=== PATIENT | female | born 1960 | race Caucasian/White ===

== ENCOUNTER 2020-12-31 18:10 | Emergency (ER) | payer OTHER, SELFPAY ==
--- NOTE | ~2020-12-31 | XR_ITS ---
EXAMINATION: XR ELBOW, RIGHT XR SHOULDER, RIGHT CLINICAL INFORMATION: Fall. COMPARISON: None TECHNIQUE: 3 views right elbow and 4 views right shoulder. FINDINGS: RIGHT SHOULDER: There is no visible acute fracture, dislocation or subluxation. The glenohumeral joints and the AC joint space is maintained normal. The soft tissues are normal. RIGHT ELBOW: There is no visible acute fracture, dislocation or subluxation seen. There is mildly positive anterior fat pad sign, suspicious for intra-articular fracture, not seen. XR/XR shoulder RT min 2V IMPRESSION: Unremarkable right shoulder exam. No acute fracture or dislocation seen in the right elbow, however, there is mildly positive anterior fat-pad sign suspicious of intra-articular fracture.
--- NOTE | ~2020-12-31 | XR_ITS ---
EXAMINATION: XR ELBOW, RIGHT XR SHOULDER, RIGHT CLINICAL INFORMATION: Fall. COMPARISON: None TECHNIQUE: 3 views right elbow and 4 views right shoulder. FINDINGS: RIGHT SHOULDER: There is no visible acute fracture, dislocation or subluxation. The glenohumeral joints and the AC joint space is maintained normal. The soft tissues are normal. RIGHT ELBOW: There is no visible acute fracture, dislocation or subluxation seen. There is mildly positive anterior fat pad sign, suspicious for intra-articular fracture, not seen. XR/XR elbow RT min 3V IMPRESSION: Unremarkable right shoulder exam. No acute fracture or dislocation seen in the right elbow, however, there is mildly positive anterior fat-pad sign suspicious of intra-articular fracture.
[2020-12-31 18:22] VITALS: BP 158/70; PULSE 64; RESP 16; TEMP 36.7; O2SAT 98; BMI 36.0
--- NOTE | 2020-12-31 19:19 | ED_ITS ---
HPI - Fall General Chief Complaint: Fall Stated Complaint: Fall Source: patient Mode of arrival: ambulatory Limitations: no limitations History of Present Illness HPI Narrative: 60-year-old female presents after a fall at work. States that she slipped on a wet floor and landed on her right arm. She is complaining of right elbow and right shoulder pain. She did not hit her head or lose consciousness complaint: fall Onset (ago): hour(s) (Within the hour of arrival) Fall from: standing Fall witnessed: yes, by bystander Place fall occurred: work Loss of consciousness: none Prolonged down time: no Symptoms prior to fall: none Context: tripped/slipped (Wet floor) Location of injury - extremities: right: shoulder and arm Severity: moderate Severity scale (1-10): 7 Quality: aching Related Data Previous Rx's Medication Instructions Recorded oxycodone 5 mg tablet 5 mg PO Q6H PRN #14 tab 12/31/20 Allergies Allergy/AdvReac Type Severity Reaction Status Date / Time No Known Allergies Allergy Unverified 01/09/20 18:55 [No Known Allergies*] Review of Systems Review of Systems: Constitutional: No Fever, No Chills ENT/Mouth: No Ear Pain, No Hoarseness, No sore throat Eyes: No Eye Pain, No Swelling, No Redness, No Foreign Body Cardiovascular: No Chest Pain, No SOB Respiratory: No Cough, No Dyspnea Gastrointestinal: No Nausea, No Vomiting, No Diarrhea, No abdominal Pain Genitourinary: No Dysuria, No Hematuria Musculoskeletal: positive right elbow and shoulder pain, No Myalgias, No Joint S welling Skin: No Skin lacerations, No rash Neuro: No Weakness, No Numbness, No Paresthesias, No Loss of Consciousness, No Dizziness, No Headache Psych: No Anxiety/Panic, No Depression Heme/Lymph: no easy bruising, no Lymphadenopathy Endocrine: No Polyuria, No Polydipsia Yes all other systems are reviewed and are negative PMFSH Past Medical History Attestation statement: The following information was validated with the patient. Source: old records reviewed Social History Social History Advance Directives: No Advance Directives Information Provided: No Physical Exam Vital Signs: Vital Signs: Last Vital Signs Temp 98.1 F 12/31/20 18:22 Pulse 64 12/31/20 18:22 Resp 16 12/31/20 18:22 BP 158/70 H 12/31/20 18:22 Pulse Ox 98 12/31/20 18:22 Body Mass Index 36.0 Appearance: Alert. Oriented X3. Mild distress. Eyes: Pupils equal, round and reactive to light. Sclera nonicteric. ENT: Pharynx normal. Moist mucous membranes. Neck: Normal inspection. Neck supple. No vertebral tenderness or step-offs. CVS: Normal heart rate and rhythm. Pulses normal. Respiratory: No respiratory distress. Breath sounds normal. Abdomen: Soft and nontender. Skin: Skin warm and dry. Normal skin color. Normal skin turgor. Extremities: Right elbow pain to palpation, full range of motion to the hands and digits, decreased range of motion to the right elbow, decreased range of motion on abduction and adduction to the right shoulder. Tenderness to the acromion process and anterior shoulder. No tenderness to the back or scapula. Neuro: No motor deficit. No sensory deficit. Cranial nerves 2-12 intact. Course Course Course Narrative: 60-year-old female presents with injury sustained from a fall at work. X-rays indicate suspicion for elbow fracture and physical exam suspicious for right rotator cuff injury or ligament injury. I did discuss this case with Dr. Yarbrough, plan of care is for patient follow-up as an outpatient, swelling, and pain management. Patient verbalized understanding of and agrees to plan of care discharge home. Consultations Consultation #1: [place] Time: 20:27 MDM - Fall Differential Diagnosis Differential diagnosis: Likely dislocation and fracture Medical Records Attestation: I reviewed the patient's medical records. Lab Data Attestation: I reviewed the patient's lab results. Imaging Data Right shoulder and elbow x-ray: Attestation: I personally reviewed and interpreted this imaging study as follows: Radiologist's impression: EXAMINATION: XR ELBOW, RIGHT XR SHOULDER, RIGHT CLINICAL INFORMATION: Fall.? COMPARISON: None? TECHNIQUE: 3 views right elbow and 4 views right shoulder.? FINDINGS: RIGHT SHOULDER: There is no visible acute fracture, dislocation or subluxation. The glenohumeral joints and the AC joint space is maintained normal. The soft tissues are normal. RIGHT ELBOW: There is no visible acute fracture, dislocation or subluxation seen. There is mildly positive anterior fat pad sign, suspicious for intra-articular fracture, not seen.? XR/XR elbow RT min 3V IMPRESSION: Unremarkable right shoulder exam. ? No acute fracture or dislocation seen in the right elbow, however, there is mildly positive anterior fat-pad sign suspicious of intra-articular fracture. Discharge Plan Discharge Clinical Impression: Fractured elbow, Rotator cuff injury Patient Disposition: Home, Self-Care Instructions: Rotator Cuff Injury (ED), Elbow Fracture (ED), How to Use a Sling (ED) Additional Instructions: You were evaluated for injury sustained from a at work. X-rays show suspicion for an elbow fracture and your physical exam is suspicious for a rotator cuff injury. Please follow up with [facility] as well as Orthopedics for further evaluation. I did discuss your case with Dr. Yarbrough. keep sling in place, you may remove to shower. We prescribed oxycodone, this medication is a narcotic and has high risk for addiction and abuse. Do not drive or operate machinery while taking this medication. This medication can cause drowsiness, increased risk for falls, delay reaction time, and cause constipation. Drink plenty of fluids, and use Colace or MiraLax to help soften stools. Thank you for choosing this emergency department for evaluation. Please follow-up with primary care physician as needed. Return to the emergency department for any new, concerning, or worsening symptoms. Prescriptions: New oxycodone 5 mg tablet 5 mg PO Q6H PRN (Reason: pain) Qty: 14 RF: 0 Referrals: [facility] [Provider Group] - 2 days (Fall, elbow fracture, rotator cuff injury) Krzysztof Yarbrough MD [Physician] - 2 days (Right elbow fracture, rotator cuff injury) Stand Alone Forms: Work/School Release Interventions: ED Discharge Assessment Last Done: 12/31/20 21:44 Discharge Date/Time: 12/31/20 21:44
== END 2020-12-31 21:44 | disposition home or self-care (01) ==
PROVIDERS: Emergency Provider Emergency Medicine; PCP Family Medicine
DX: S46.001A Unspecified injury of muscle(s) and tendon(s) of the rotator cuff of right shoulder, initial encounter (principal); S42.401A Unspecified fracture of lower end of right humerus, initial encounter for closed fracture; W01.0XXA Fall on same level from slipping, tripping and stumbling without subsequent striking against object, initial encounter; Y93.89 Activity, other specified; Y92.219 Unspecified school as the place of occurrence of the external cause; Y99.0 Civilian activity done for income or pay
CPT/HCPCS: 73030; 73080; 99283

== ENCOUNTER → 2021-01-05 12:50 | Outpatient (BNVA) | payer OTHER, SELFPAY | PROVIDERS: PCP Family Medicine; Visit Provider Physician Assistant Medical | DX: S50.01XA Contusion of right elbow, initial encounter (principal); S52.001A Unspecified fracture of upper end of right ulna, initial encounter for closed fracture; S46.211A Strain of muscle, fascia and tendon of other parts of biceps, right arm, initial encounter; S46.911A Strain of unspecified muscle, fascia and tendon at shoulder and upper arm level, right arm, initial encounter; W01.0XXA Fall on same level from slipping, tripping and stumbling without subsequent striking against object, initial encounter | CPT/HCPCS: 99203 ==

== ENCOUNTER 2021-01-08 07:20 | Outpatient (REF) | payer OTHER, SELFPAY ==
--- NOTE | ~2021-01-08 | XR_ITS ---
EXAMINATION: XR ELBOW, RIGHT XR FOREARM, RIGHT CLINICAL INFORMATION: Pain. COMPARISON: Right elbow radiographs dated 12/31/2020 TECHNIQUE: AP, oblique, and lateral views of the right elbow. AP and lateral views of the right forearm. FINDINGS: RIGHT ELBOW: No displaced fracture. No dislocation. No joint space narrowing or marginal osteophytes. No osseous erosion. No large joint effusion. No abnormal soft tissue calcification. RIGHT FOREARM: No acute fracture or dislocation. No joint space narrowing or marginal osteophytes. No osseous erosion. No abnormal soft tissue calcification. XR/XR elbow RT min 3V IMPRESSION: RIGHT ELBOW: Unremarkable examination. RIGHT FOREARM: Unremarkable examination.
--- NOTE | ~2021-01-08 | XR_ITS ---
EXAMINATION: XR ELBOW, RIGHT XR FOREARM, RIGHT CLINICAL INFORMATION: Pain. COMPARISON: Right elbow radiographs dated 12/31/2020 TECHNIQUE: AP, oblique, and lateral views of the right elbow. AP and lateral views of the right forearm. FINDINGS: RIGHT ELBOW: No displaced fracture. No dislocation. No joint space narrowing or marginal osteophytes. No osseous erosion. No large joint effusion. No abnormal soft tissue calcification. RIGHT FOREARM: No acute fracture or dislocation. No joint space narrowing or marginal osteophytes. No osseous erosion. No abnormal soft tissue calcification. XR/XR forearm RT 2V IMPRESSION: RIGHT ELBOW: Unremarkable examination. RIGHT FOREARM: Unremarkable examination.
== END 2021-01-08 07:21 | disposition home or self-care (01) ==
LOC: HO.HOSX 07:20
PROVIDERS: Visit Provider Physician Assistant
DX: M25.521 Pain in right elbow (principal); M79.631 Pain in right forearm
CPT/HCPCS: 73080; 73090; 99202

== ENCOUNTER 2021-01-22 07:32 | Outpatient (REF) | payer OTHER, SELFPAY ==
--- NOTE | ~2021-01-22 | XR_ITS ---
EXAMINATION: XR ELBOW, RIGHT CLINICAL INFORMATION: Pain. COMPARISON: Most recent right elbow radiographs dated 01/08/2021. TECHNIQUE: AP, lateral, and oblique views of the right elbow. FINDINGS: No acute fracture or dislocation. No joint space narrowing or marginal osteophytes. No osseous erosion. No abnormal soft tissue calcification. No significant joint effusion. XR/XR elbow RT min 3V IMPRESSION: Unremarkable examination.
== END 2021-01-22 07:33 | disposition home or self-care (01) ==
LOC: HO.HOSX 07:32
PROVIDERS: Visit Provider Physician Assistant
DX: M75.81 Other shoulder lesions, right shoulder (principal); M25.521 Pain in right elbow
CPT/HCPCS: 20610; 73080; 99212; J1040

== ENCOUNTER 2021-03-04 14:00 | Outpatient (RCR) | payer OTHER, SELFPAY ==
--- NOTE | 2021-02-03 11:27 | MHC.PT.EP ---
[facility] [place] Office [place] Office [place] Office [address] Leila Hollingsworth [address] [phone] F: [phone] F: [phone] F: [phone] F: [phone] Physical Therapy Plan of Care Date of Evaluation: Date of Surgery: Diagnosis: This is a 60 yo female presenting to skilled PT with a script for R rotator cuff tendonitis. Assessment: This is a 60 yo female presenting to skilled PT with a script for R rotator cuff tendonitis. Pt comes to PT reporting a trip and fall at work on 12/31. Injury occurred when she walked onto a wet floor that was not marked and fell onto her R elbow/side. Does not think she hit her head but denies neck pain. She is being followed by [facility] ortho. The patient had an injection on 01/22. Per ortho note suspected R elbow fx but unsure. She comes in today reporting elbow is feeling better but her shoulder has been increasing in pain. She was placed in a sling originally after the injury but is not wearing one today at PT [facility] as directed by ortho. She reports: I can do pretty much everything but I have pain. It is improving but is still painful constantly. Denies numbness or tingling. She is RHD. Assessment reveals pain that ranges up to a 9/10. She demos decreased RUE ROM, decreased RUE strength, impaired posture with forward head/rounded shoulders and adducted/IR shoulder, impaired shoulder and elbow joint mobility as well as gross functional decline with reaching overhead/to the side, getting dressed, writting and typing as well as lifting. She returns to ortho in about a month and is leaving for [place] for family reasons for 2 weeks this Monday (she was provided an HEP to continue in the mean time). She is a good candidate for skilled PT 2x/wk for 6wks. Frequency and Duration: The patient will be seen 2x/wk for 6wks Short Term Goals: I in HEP Improve shoulder AROM without pain in all directions by 10 degs Chcf Goals: Tolerate sleeping through the night without waking from pain Demo at least 4+/5 scapular and shoulder strength Return to work in full without increase in pain when performing typing or writing Demo normal RUE ROM Treatment Plan: Modalities to reduce pain, spasms and effusion. Manual therapy to restore motion and function. Therapeutic exercise to improve strength and flexibility. Neuromuscular re-education for posture and balance. Therapeutic activities to return to functional activities of daily living. Electronically signed by: Allie Duarte PT Please sign and return to therapist. Thank you for your referral.
--- NOTE | 2021-02-25 12:17 | MHC.PT.PR ---
[facility] [place] Office [place] Office [place] Office [address] Hollingsworth [address] [phone] F: [phone] F: [phone] F: [phone] F: [phone] Physical Therapy Progress Note Diagnosis: This is a 60 yo female presenting to skilled PT with a script for R rotator cuff tendonitis. Date of Surgery: Date of Evaluation: 02/03/21 Treatments to Date: 4 Cancellations to Date: 0 No Shows to Date: 0 Subjective: Patient reporting that she was sore after last tx session, this has resolved today. She has been using her hot tub at home. Pain Score and Location: 6 RUE Objective Measures: ROM: Tolerated to 150 flexion AROM, 90 abduction, 50 ER in 45 degs, 45 IR in 45 degs TTP: anterior GHJ, infraspinatus and subscapularis Assessment: Patient returned to PT this week after being away due to family needs for 2 weeks. She has had initial eval on 02/03 and had a follow up prior to leaving (adequate HEP to continue while away). In general she reports that she has improved some but ROM when reassessed is equally painful and continues to be limited. Not only if her shoulder painful with all ROM active and passive but she also has worsening elbow symptoms. She would benefit from follow up with ortho and ? new imaging due to tenderness to palpation and limitations with ROM as well as nature of traumatic injury. She continues to be limited in housework, ADLs and has not returned to work as of yet. PT Plan: Continue with PT Frequency and Duration: The patient will be seen 2x/wk for 6wks Treatment Plan: Therapeutic Exercise Dynamic Therapeutic Activities Neuromuscular Re-ed Manual Therapies Joint Mobilization Taping Home Exercise Program Patient Education Electrical Stimulation Hot or Cold Pack Reviewed/ Agreed with Student Documentation: Therapist: Thank you once again for your referral.
--- NOTE | 2021-04-12 13:10 | MHC.PT.DC ---
[facility] [place] Office [place] Office [place] Office [address] Leila Hollingsworth [address] [phone] F: [phone] F: [phone] F: [phone] F: [phone] Physical Therapy Discharge Report Diagnosis: This is a 60 yo female presenting to skilled PT with a script for R rotator cuff tendonitis. Date of Surgery: Date of Evaluation: 02/03/21 Date of Discharge: 04/12/21 Treatments to Date: 5 Cancellations to Date: 0 No Shows to Date: 0 Discharge Status: Physician Discontinued Tx Discharge Summary: 03/04: Patient with increased soreness with minimal ther-ex. Regressed with some isometrics and light cane ther-ex. Trialed ionto for pain today. Skin intact to light touch, some redness noted s/p session but no skin irritation other than some itchiness. Seeing orthopedic tomorrow, would benefit from ? MRI. 04/12: Per ortho note, patient is undergoing surgery. DC to HEP. Electronically signed by: Allie Duarte PT Please sign and return to therapist. Thank you for your referral.
== END 2021-04-12 12:33 | disposition home or self-care (01) ==
LOC: HO.PTCHIC 14:00
PROVIDERS: PCP Family Medicine; Visit Provider Physician Assistant
DX: M75.80 Other shoulder lesions, unspecified shoulder (principal)
CPT/HCPCS: 97014; 97033; 97110; 97140; 97162

== ENCOUNTER → 2021-03-05 12:31 | Outpatient (BNVA) | payer OTHER, SELFPAY | PROVIDERS: PCP Family Medicine; Visit Provider Physician Assistant | DX: M75.80 Other shoulder lesions, unspecified shoulder (principal) | CPT/HCPCS: 99212 ==

== ENCOUNTER 2021-03-25 19:31 | Outpatient (REF) | payer OTHER, SELFPAY ==
--- NOTE | ~2021-03-25 | MR_ITS ---
EXAMINATION: MR SHOULDER WITHOUT CONTRAST, RIGHT CLINICAL INFORMATION: Other shoulder lesions, unspecified shoulder. Patient reports dull ache in right shoulder, weakness right arm, fell December 31. COMPARISON: XR right shoulder 12/31/2020. TECHNIQUE: MRI of the shoulder without contrast was performed on a high-field scanner. FINDINGS: ROTATOR CUFF: There is mild distal supraspinatus tendinosis with mild focal fraying of the bursal surface of the distal anterior fibers. There is no discrete tear. There is mild distal infraspinatus and subscapularis tendinosis. The teres minor tendon is intact. No muscle atrophy or fatty infiltration. BICEPS: Normal. CORACOACROMIAL ARCH: The undersurface of the acromion is curved, mildly laterally downsloping, with no subacromial spur. There is [id number] osteoarthritis of the acromioclavicular joint. LABRUM/CAPSULE: There is focal tearing of the junction of the superior and posterior labrum. The anterior labrum appears intact. The capsular structures are unremarkable. GLENOHUMERAL JOINT/MARROW: There are focal areas of mild cartilage thinning in the glenohumeral joint. MR/MR shoulder RT wo con IMPRESSION: 1. Mild distal supraspinatus tendinosis with focal bursal surface fraying. No discrete tear. Mild distal infraspinatus and subscapularis tendinosis. 2. Mildly laterally downsloping acromion process and [id number] osteoarthritis of the acromioclavicular joint. 3. Focal posterosuperior labral tear.
== END 2021-03-25 19:32 | disposition home or self-care (01) ==
LOC: HO.MRI 19:31
PROVIDERS: Visit Provider Physician Assistant
DX: M75.80 Other shoulder lesions, unspecified shoulder (principal)
CPT/HCPCS: 73221

== ENCOUNTER → 2021-03-31 10:45 | Outpatient (BNVA) | payer OTHER, SELFPAY | PROVIDERS: PCP Family Medicine; Visit Provider Physician Assistant | DX: S43.431D Superior glenoid labrum lesion of right shoulder, subsequent encounter (principal); M75.80 Other shoulder lesions, unspecified shoulder | CPT/HCPCS: 99212 ==

== ENCOUNTER 2021-04-27 08:54 | Day surgery (SDC) | payer OTHER, SELFPAY ==
--- NOTE | 2021-04-26 15:23 | HO.ANESPROP2 ---
HPI - Anesthesia Eval Consult details Narrative: 60yo F for Right Shoulder Arthroscopy with Subacromial Decompression and Labral Debridement PMFSH Active Problems Active Problems: All Active Problems (Updated 03/31/21 @ 15:27 by Greg Martinez PA-C) Labral tear of shoulder (Acute) Rotator cuff tendonitis (Acute) Right elbow pain (Acute) Past Medical History Medical History H/O deep venous thrombosis History of pulmonary embolism HTN (hypertension) Surgical History Surgical History (Updated 04/27/21 @ 09:37 by Cecelia Londono RN) History of sleeve gastrectomy Hx of laparoscopic gastric banding Social History Social History Patient Tobacco Use Status: Current everyday Tobacco user Tobacco use type: Cigarette Cigarettes Per Day: 3 Years Smoked: 23 Current occupational status: employed Current occupation: rt handed/secondary school registrar Meds Allergies Allergy/AdvReac Type Severity Reaction Status Date / Time No Known Allergies Allergy Verified 03/31/21 10:54 [No Known Allergies*] Home Medications Medication Instructions Recorded Confirmed Last Taken Type Lexapro 04/27/21 04/26/21 09:00 History Wellbutrin XL 150 mg PO DAILY 04/27/21 04/27/21 04/26/21 09:00 History lisinopril 20 mg PO DAILY 04/27/21 04/27/21 04/26/21 11:30 History omeprazole 20 mg PO DAILY 04/27/21 04/27/21 04/26/21 23:00 History Exam Exam Date and Time: April 26, 2021 1523 Assessment and Plan Assessment Anesthesia Assessment: Chart Reviewed
[2021-04-27] VITALS (21 sets, daily range): BP systolic 113–159; BP diastolic 42–91; PULSE 62–80; RESP 14–20; TEMP 36.6–37; O2SAT 90–100; BMI 35.2
[2021-04-27] MEDS: Lactated Ringers 1,000 ML 100 ML IVCONT (10:40)
--- NOTE | 2021-04-27 11:51 | MHC.SHP ---
Pre-Procedural Eval Section A Date of Service: 04/27/21 The patient is an INPATIENT: No Changes since office visit: Yes Patient answered all questions; No Cold of Flu in the past 2 weeks, No New Medical Problems and No Changes in Medication The History & Physical has been completed within 30 days and I have reviewed it.: Yes Section B Chief Complaint: other shoulder lesions Allergies: Allergies Allergy/AdvReac Type Severity Reaction Status Date / Time No Known Allergies Allergy Verified 03/31/21 10:54 [No Known Allergies*] Plan I have reviewed the history and physical and performed a pertinent physical examination on my patient. No changes have occurred unless specified.
--- NOTE | 2021-04-27 14:18 | P.BOP_ITS ---
Brief Operative Note Date of Service: 04/27/21 Pre-op diagnosis: right sub acromial impingement, labral tear and ACJ OA Post-op diagnosis: other (1) RAYNA 2) ACJ OA 3) Labral tear 4) rtc tear) Procedure: 1) SAD 2) DCE 3) circumferential labral debridement 4) rtc repair Implants: parekh and nephew bioinductive collagen graft Surgeon: Krzysztof Yarbrough MD Anesthesia: GETA and regional Was an Lock And Dam Operator used for this Procedure?: Yes Lock And Dam Operator: Greg Martinez Estimated blood loss (mL): 25 IV fluids (mL): 800 Pathology: none sent Condition: stable Disposition: PACU
[2021-04-27] MEDS: fentaNYL citrate/PF 100 MCG/2 ML VIAL 25 MCG IVPUSH ×4 (15:22→16:00)
[2021-04-27] MEDS: Acetaminophen 325 MG TABLET 650 MG PO (15:22)
[2021-04-27] MEDS: oxyCODONE HCl Immed Release 5 MG TABLET PO (15:23)
[2021-04-27] MEDS: HYDROmorphone HCl 0.5 MG/0.5 ML SYRINGE 0.25 MG IVPUSH ×2 (16:13→16:25)
[2021-04-27] MEDS: Ketorolac Tromethamine 30 MG/ML VIAL 15 MG IVPUSH (17:00)
--- NOTE | 2021-04-28 10:52 | P.OP_ITS ---
Operative Note Operative Note Date of Service: 04/27/21 Narrative: Date of Service: 04/27/21 Pre-op diagnosis: right sub acromial impingement, labral tear and ACJ OA Post-op diagnosis: other (1) RAYNA 2) ACJ OA 3) Labral tear 4) rtc tear) Procedure: 1) SAD 2) DCE 3) circumferential labral debridement 4) rtc repair Implants: parekh and nephew bioinductive collagen graft Surgeon: Krzysztof Yarbrough MD Anesthesia: GETA and regional Was an Customer Sales Service Manager used for this Procedure?: Yes Customer Sales Service Manager: Greg Martinez Estimated blood loss (mL): 25 IV fluids (mL): 800 Pathology: none sent Condition: stable Procedure in detail: Patient was brought to the operating room and placed the the beach chair posit ion. All bony prominences were well padded and the limb was prepped and draped in standard sterile fashion. A time out was called to identify proper site, proper procedure and proper surgeon. IV antibiotics per weight were administered. I began by making a posterolateral stab incision with a 15 blade. A blunt trochar was placed into the glenohumeral joint and I insufflated the joint with saline and a 30 degree arthroscope was placed. I established an outside- in anterior portal just distal to the biceps tendon. I then began my inspection of the glenohumeral joint. There was grade 2 changes of the glenoid. The humeral head was normal. There was some fraying of the biceps anchor but no elizabeth tearing. The superior labrum was diminutive and there was a large superior glenoid ossicle that extended the entirety of the superior ridge of the glenoid. This was slightly mobile when pressure was applied with a probe. There was circumferential small labral tearing. There was no undersurface rotator cuff tear. The subscapularis was intact. I began by debriding the superior labrum down to stable edges. I then burred down the mobile large ossicle and circumferentially debrided the labrum. I then removed the trochar and entered the subacromial space. A direct lateral portal was then established and I performed a bursectomy. D subacromial spur was debrided with a shaver approximately 5 mm and a distal clavicle excision of an additional 6 mm was performed after inspecting the osteoarthritic joint. Once the decompression was adequate I examined the rotator cuff. There was 50% partial-thickness bursal tearing of the supraspinatus approximately . given this I elected to place a collagen graft. An additional lateral portal was made and this was placed through the lateral portal and then adhered to the underlying cuff with peak omar and with 1 peek staple to the bone laterally. I had excellent coverage of the partial-thickness tear. Final pictures were taken and all instrumentation was removed. Portals were closed with nylon. Patient was placed in sterile dressing and a sling and extubated brought to recovery room in stable condition. There were no known complications.
== END 2021-04-27 19:02 | disposition home or self-care (01) ==
PROVIDERS: PCP Family Medicine; Visit Provider Orthopaedic Surgery
PROC: (CPT 29805; principal; 2021-04-27 10:30)
DX: S43.431A Superior glenoid labrum lesion of right shoulder, initial encounter (principal); S46.011A Strain of muscle(s) and tendon(s) of the rotator cuff of right shoulder, initial encounter; M67.813 Other specified disorders of tendon, right shoulder; M75.41 Impingement syndrome of right shoulder; M19.011 Primary osteoarthritis, right shoulder; X58.XXXA Exposure to other specified factors, initial encounter; Y93.9 Activity, unspecified; Y92.219 Unspecified school as the place of occurrence of the external cause; Y99.0 Civilian activity done for income or pay; I10 Essential (primary) hypertension; Z98.84 Bariatric surgery status; Z86.718 Personal history of other venous thrombosis and embolism; Z86.711 Personal history of pulmonary embolism; Z79.899 Other long term (current) drug therapy
CPT/HCPCS: 29827; 29826; 29824; 29823; C1713; J0171; J0690; J1100; J1170; J1885; J2250; J2370; J2405; J2550; J3010

== ENCOUNTER → 2021-05-03 09:41 | Outpatient (BNVA) | payer OTHER, SELFPAY | PROVIDERS: Visit Provider Physician Assistant | DX: S43.439D Superior glenoid labrum lesion of unspecified shoulder, subsequent encounter (principal); M25.521 Pain in right elbow; M75.80 Other shoulder lesions, unspecified shoulder; F17.210 Nicotine dependence, cigarettes, uncomplicated; Z98.890 Other specified postprocedural states | CPT/HCPCS: 99212 ==

== ENCOUNTER → 2021-05-31 14:31 | Outpatient (BNVA) | payer OTHER, SELFPAY | PROVIDERS: Visit Provider Physician Assistant | DX: Z47.89 Encounter for other orthopedic aftercare (principal) | CPT/HCPCS: 99212 ==

== ENCOUNTER → 2021-06-21 14:44 | Outpatient (BNVA) | payer OTHER, SELFPAY | PROVIDERS: Visit Provider Physician Assistant | DX: Z47.89 Encounter for other orthopedic aftercare (principal) | CPT/HCPCS: 99212 ==

== ENCOUNTER → 2021-08-02 13:07 | Outpatient (BNVA) | payer OTHER, SELFPAY | PROVIDERS: PCP Family Medicine; Visit Provider Physician Assistant | DX: Z98.890 Other specified postprocedural states (principal); F17.200 Nicotine dependence, unspecified, uncomplicated; Z71.6 Tobacco abuse counseling | CPT/HCPCS: 99212 ==

== ENCOUNTER → 2021-09-13 15:27 | Outpatient (BNVA) | payer OTHER, SELFPAY | PROVIDERS: PCP Family Medicine; Visit Provider Physician Assistant | DX: Z47.89 Encounter for other orthopedic aftercare (principal); Z98.890 Other specified postprocedural states | CPT/HCPCS: 99212 ==

== ENCOUNTER 2021-09-28 15:00 | Outpatient (RCR) | payer OTHER, SELFPAY ==
--- NOTE | 2021-05-28 15:10 | MHC.PT.PR ---
[facility] [place] Office [place] Office [place] Office [address] Leila Hollingsworth [address] [phone] F: [phone] F: [phone] F: [phone] F: [phone] Physical Therapy Progress Note Diagnosis: S/P ROTATION MED PATCH RC REPAIR/SAD Date of Surgery: 04/27/21 Date of Evaluation: 05/03/21 Treatments to Date: 8 Cancellations to Date: 0 No Shows to Date: 0 Subjective: Patient returns reporting pain was better after therapy last session but still has trouble sleeping and has pain again today. Pain Score and Location: 5 ACJ Objective Measures: 05/28/21 PROM: flexion 132, abduction 103, ER in 45 to 60 and 90 to 40 Assessment: 05/28/21: Jacki comes to PT reporting trouble sleeping and lingering pain still. Pain is located at the anterior GHJ incision and is tender to touch. She has stiffness and achiness into the upper humerus as well. She demos PROM flexion 132, abduction 103, ER in 45 to 60 and 90 to 40 today. She reports crepitis with cane work today associated with pain so held flexion and press after a few reps. She was educated on ice. Pain at the worst these days is rated as a 5/10. After manual work at the upper trap she had some improvements in the ability to perform ROM and had some improved pain. I will send this over as a progress note for ortho (appointment on Monday05/31/21). She is motivated to get better but pain seems to be the limiting component in terms of progression at this time. All therapy tx is still done to pain tolerance. She will be 5 weeks s/p surgical intervention on 06/01/21. She is curious about returning to driving time frames PT Plan: Continue with PT Frequency and Duration: The patient will be seen 2 X WEEK FOR 8 WEEKS Treatment Plan: Therapeutic Exercise Neuromuscular Re-ed Manual Therapies Taping Home Exercise Program Patient Education Electrical Stimulation Hot or Cold Pack Reviewed/ Agreed with Student Documentation: Therapist: Thank you once again for your referral.
--- NOTE | 2021-07-05 16:53 | MHC.PT.PR ---
[facility] [place] Office [place] Office [place] Office [address] Cristal Hollingsworth [address] [phone] F: [phone] F: [phone] F: [phone] F: [phone] Physical Therapy Progress Note Diagnosis: S/P ROTATION MED PATCH RC REPAIR/SAD Date of Surgery: 04/27/21 Date of Evaluation: 05/03/21 Treatments to Date: 17 Cancellations to Date: 0 No Shows to Date: 0 Subjective: I am feeling worse again, the clicking is worse and I had to take pain medication again Pain Score and Location: 0-8 (clicking) R shoulder Objective Measures: See below Assessment: 07/05/21: Jacki is now almost 10 weeks out from surgery. She is reporting the pain has increased again (starting last week) and this is due to an increase in painful clicking. She is TTP throughout the distal anterior and posterior glenoid. I trialed her in standing with AROM to see when clicking occurred. With standing AROM she demos improved ROM however experienced clicking with active flexion, abduction, ER and IR in abduction (all in standing). She also experienced clicking with active motions in supine (more frequent but not worse). She is concerned about this and reports that she will call surgeons office tomorrow. Updated ROM measurements from previous session include 120 abduction, 155 flexion, 55 degs ER In 45 degs. PT Plan: Continue with PT Frequency and Duration: The patient will be seen 2 X WEEK FOR 8 WEEKS Treatment Plan: Therapeutic Exercise Dynamic Therapeutic Activities Neuromuscular Re-ed Manual Therapies Taping Home Exercise Program Patient Education Electrical Stimulation Hot or Cold Pack Reviewed/ Agreed with Student Documentation: Therapist: Thank you once again for your referral.
--- NOTE | 2021-07-15 16:04 | MHC.PT.RE ---
[facility] [place] Office [place] Office [place] Office [address] Leila Hollingsworth [address] [phone] F: [phone] F: [phone] F: [phone] F: [phone] Physical Therapy Re-evaluation Diagnosis: S/P ROTATION MED PATCH RC REPAIR/SAD Date of Surgery: 04/27/21 Date of Evaluation: 05/03/21 Treatments to Date: 20 Cancellations to Date: 0 No Shows to Date: 0 Subjective: Patient reporting that she would like to continue PT at this time, feels like it is helping still Pain Score: 1-6/10 Pain Location: R shoulder Objective Measures: Pain: at rest 1-2/10, at the worst 6/10. Clicking is still present but improving, pain is located at the superior aspect of the shoulder, described as muscle pain TTP: Superior, posterior and anterior GHJ AROM standing: (R) shoulder flexion 156, abduction 138 AROM supine: (R) shoulder flexion 156, abduction 110, ER in 45 to 73, ER in 90 to 55, IR in 90 to 60 PROM supine: (R) shoulder flexion 164, abduction 170, ER in 45 to 60 and ER in 90 to 55 MMT (R) shoulder flexion 4-/5, abduction 4-/5, ER 4+/5, IR 4+/5, lower trap 4/5, mid and upper trap 3-/5 SPADI score now 24 on pain and 34 on disability Assessment: 07/15/21: Jacki is progressing with therapy still, she continues to have pain and limitations in ROM and strength and would benefit from continued PT 2x/wk for 4 more weeks. She demos AROM, AAROM and PROM above. Patient is compliant with HEP but is benefiting from PT pushing ROM still in the clinic. In order to return to PLOF, improve pain and ROM patient needs to continue physical therapy based on assessment above. She is planning on returning to work this wednesday 07/19 an d returns to the ortho on 08/02 which will provide us with more clarification of orders at that time. 07/12/21: Jacki reporting continuation of pain that was extensive over the weekend again. She reports pain when shoulder clicks still. I kept exercises in a range to avoid clicking patterns. She was instructed in weighted RTC strengthening. PROM is still painful, performed light mobs for abduction today. 07/08/21: Jacki called ortho office reports that clicking is normal and continue PT. She is unsure if she is just getting used to the pain or if there is some improvement. Continued to strengthen in pain free ranges. 07/05/21: Jacki is now almost 10 weeks out from surgery. She is reporting the pain has increased again (starting last week) and this is due to an increase in painful clicking. She is TTP throughout the distal anterior and posterior glenoid. I trialed her in standing with AROM to see when clicking occurred. With standing AROM she demos improved ROM however experienced clicking with active flexion, abduction, ER and IR in abduction (all in standing). She also experienced clicking with active motions in supine (more frequent but not worse). She is concerned about this and reports that she will call surgeons office tomorrow. Updated ROM measurements from previous session include 120 abduction, 155 flexion, 55 degs ER In 45 degs. Short Term Goals: INITIATE HEP AND PROMOTE SELF MANAGEMENT OF SYMPTOMS Cannery Worker Goals: Full, pain free ROM in 6 weeks Full UE strength, pain free in 6 weeks To perform computer and work tasks without restriction and pain no greater than 2/10 [address] at minimum of 5# into cabinet at shoulder height in 6 weeks (MET) Frequency and Duration: The patient will be seen 2x/wk for 4wks Treatment Plan: Therapeutic Exercise Dynamic Therapeutic Activities Neuromuscular Re-ed Manual Therapies Joint Mobilization Home Exercise Program Patient Education Hot or Cold Pack Reviewed/ Agreed with Student Documentation: Therapist: Electronically signed by: Allie Duarte PT Please sign and return to therapist. Thank you for your referral.
--- NOTE | 2021-10-06 07:58 | MHC.PT.DC ---
[facility] [place] Office [place] Office [place] Office [address] Leila Hollingsworth [address] [phone] F: [phone] F: [phone] F: [phone] F: [phone] Physical Therapy Discharge Report Diagnosis: S/P ROTATION MED PATCH RC REPAIR/SAD Date of Surgery: 04/27/21 Date of Evaluation: 05/03/21 Date of Discharge: 10/06/21 Treatments to Date: 35 Cancellations to Date: 0 No Shows to Date: 0 Discharge Status: Achieved Goals Improved Function Independent with HEP Patient Elected to Stop Discharge Summary: Patient called and canceled the last few appointments. She reported to desk officer that she feels ready for DC and is too busy to come in due to the end of school and family. She has improved ROM, strength and pain from the start of eval (however still reporting a significant amount of pain at DC). At this time she understands her HEP and feels that she can continue on her own. DC to HEP. Electronically signed by: Allie Duarte PT Please sign and return to therapist. Thank you for your referral.
== END 2021-10-06 07:59 | disposition home or self-care (01) ==
LOC: HO.PTCHIC 15:00
PROVIDERS: Visit Provider Physician Assistant
DX: S43.431D Superior glenoid labrum lesion of right shoulder, subsequent encounter (principal)
CPT/HCPCS: 97014; 97110; 97140; 97161; 97164; 97535

== ENCOUNTER → 2021-11-04 10:57 | Outpatient (BNVA) | payer OTHER, SELFPAY | PROVIDERS: PCP Family Medicine; Visit Provider Physician Assistant | DX: Z98.890 Other specified postprocedural states (principal) | CPT/HCPCS: 99212 ==

== ENCOUNTER 2022-06-02 06:05 | Emergency (ER) | payer OTHER, SELFPAY ==
--- NOTE | ~2022-06-02 | CT_ITS ---
EXAMINATION: CT ABDOMEN AND PELVIS WITHOUT CONTRAST CLINICAL INFORMATION: Diffuse abdominal pain/vomiting COMPARISON: None TECHNIQUE: Multidetector volumetric imaging was performed from the superior aspect of the liver through the pubic symphysis. Sagittal and coronal reformatted images were obtained on the technologist's workstation. This CT examination was performed using dose optimization techniques as appropriate, variously including the following: *Automated exposure control *Adjustment of mA and/or kV according to patient size (this includes techniques or standardized protocols for targeted exams where dose is matched to indication/reason for exam; i.e. extremities or head) *Use of iterative reconstruction technique DLP: 1026 mGy-cm FINDINGS: LUNG BASES: Small posterior basilar atelectatic changes. LIVER, GALLBLADDER, AND BILIARY TREE: Hepatic enlargement at 19.3 cm AP. Hepatic fatty infiltration with some focal fatty sparing near the gallbladder fossa. The gallbladder is unremarkable with no evidence of radiopaque gallstones, gallbladder wall thickening, or obvious pericholecystic inflammatory changes. PANCREAS: Mild peripancreatic haziness of adjacent fat. Pancreatitis is considered. SPLEEN: Splenic enlargement at 14 cm maximally. ADRENAL GLANDS: Small left hypodense nodule at -35 Hounsfield units consistent with an adenoma. KIDNEYS AND URETERS: Tiny left nephroliths, nonobstructive. No ureteral stones. Posterior cyst of the left kidney, for which no further follow-up recommended. BLADDER: Unremarkable. GASTROINTESTINAL TRACT: Scattered colonic diverticula. Distal ileum and visualized appendix unremarkable. No small bowel obstructive process seen. GE junction region and lateral stomach postoperative changes. ABDOMINAL WALL: No significant hernia is appreciated. LYMPH NODES: Small periportal, mesenteric, and retroperitoneal nodes without suspicious enlargement. VASCULAR: Minimal atherosclerotic changes. PELVIC VISCERA: Mildly lobular features of the uterus may reflect fibroids. 1.6 cm right ovarian cyst. Ultrasound recommended. OSSEOUS STRUCTURES: No compression fractures. CT/CT abdomen pelvis wo IV con IMPRESSION: Mild infiltration of the peripancreatic fat. Pancreatitis is considered. Clinical correlation recommended. Hepatosplenomegaly. Small right ovarian cyst. Ultrasound recommended in a patient of this age. Other incidental findings as noted above. Fleischner guidelines were followed.
[2022-06-02 06:12] VITALS: BP 133/85; BP 148/82; PULSE 102; PULSE 103; RESP 22; TEMP 36.6; O2SAT 97; O2SAT 98; BMI 36.1
[2022-06-02] MEDS: Ondansetron ODT 4 MG TAB.RAPDIS SUBLINGUAL (06:12)
[2022-06-02 06:15] VITALS: BP 133/85; PULSE 103; RESP 22; TEMP 36.6; O2SAT 97
[2022-06-02] MEDS: 0.9 % Sodium Chloride 1,000 ML 999 ML IV ×4 (06:25→09:41)
[2022-06-02] MEDS: ondansetron HCL 4 MG/2 ML VIAL IVPUSH (06:28)
[2022-06-02] MEDS: Morphine Sulfate 4 MG/ML CARTRIDGE IVPUSH (06:28)
[2022-06-02 06:32] LABS: Basophils Percent Auto 0.2 % (0-2); Eosinophils Percent Auto 0.2 % (0-4); Hematocrit 46.5 % (37.0-47.0); Imm Gran Abs Auto 0.13 X10*3/uL (0.00-0.03); Imm Gran Pct Auto 0.7 % (0.0-0.4); Lymphocytes Absolute Auto 0.8 X10*3/uL (1.2-4.9); MANUAL DIFF FLAG SCAN; Mean Corpuscular HGB Conc 34.4 g/dl (31.0-35.0); Mean Corpuscular Hemoglobin 29.6 pg (27.0-33.0); Mean Platelet Volume 9.6 fL (9.4-12.3); Monocytes Absolute Auto 0.8 X10*3/uL (0.1-1.2); Neutrophils Absolute Auto 17.8 x10*3/uL (2.0-8.3); Neutrophils Percent Auto 90.9 % (45-73); Platelet Count 365 X10*3/uL (160-400); Red Blood Count 5.41 X10*6/uL (4.20-5.50); SCAN SMEAR FLAG 1; White Blood Count 19.6 X10*3/uL (4.8-10.8)
[2022-06-02 06:44] LABS: Lactic Acid 4.2 mmol/L (0.5-2.0)
[2022-06-02 06:53] LABS: SLIDE REVIEW VERIFIED
--- NOTE | 2022-06-02 07:00 | ED_ITS ---
HPI - General Adult General Chief complaint: Nausea/Vomiting/Diarrhea Stated complaint: ABD,N/V/D Time Seen by Provider: 06/02/22 06:51 Source: patient Mode of arrival: ambulatory Limitations: no limitations History of Present Illness HPI narrative: 7-year-old female presents with nausea, vomiting, and diarrhea. Symptoms started 11:00 a.m. last night. Patient describes symptoms as severe in nature. Symptoms are intermittent. She also has abdominal pain. The pain is in the lower abdomen. It does not radiate. The pain is constant but does have a waxing waning component to it. There is no clear relieving or exacerbating features. The diarrhea that she has has had no blood in his watery in nature. She also has had nonbloody emesis. 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 She has had multiple sick contacts including kids. She denies any fevers or chills. Related Data Home Medications Medication Instructions Recorded Confirmed Lexapro 04/27/21 Wellbutrin XL 150 mg PO DAILY 04/27/21 04/27/21 lisinopril 20 mg PO DAILY 04/27/21 04/27/21 omeprazole 20 mg PO DAILY 04/27/21 04/27/21 Previous Rx's Medication Instructions Recorded oxycodone-acetaminophen 5 mg-325 1 tab PO Q4-6H PRN pain 7 days #42 05/18/21 mg tablet (Percocet) tabs hydrocodone 5 mg-acetaminophen 325 1 tab PO BEDTIME PRN pain 14 days 05/31/21 mg tablet #14 tabs Allergies Allergy/AdvReac Type Severity Reaction Status Date / Time No Known Allergies Allergy Verified 11/04/21 11:16 [No Known Allergies*] Review of Systems Review of Systems: CONSTITUTIONAL: Denies weight loss, fever and chills. HEENT: Denies changes in vision and hearing. RESPIRATORY: Denies SOB and cough. CV: Denies palpitations no CP. GI: + abdominal pain, nausea, vomiting and diarrhea. : Denies dysuria and urinary frequency. MSK: Denies myalgia and joint pain. SKIN: Denies rash and pruritus. NEUROLOGICAL: Denies headache and syncope. PSYCHIATRIC: Denies recent changes in mood. Denies anxiety and depression. All other ROS are negative unless in HPI PMFSH Past Medical History Medical History H/O deep venous thrombosis History of pulmonary embolism HTN (hypertension) Surgical History History of sleeve gastrectomy Hx of laparoscopic gastric banding Social History Social History Alcohol intake: current Alcohol intake frequency: holidays/special occasions only Patient Tobacco Use Status: Current everyday Tobacco user Tobacco use type: Cigarette Cigarettes Per Day: 3 Years Smoked: 23 Smoked in Last 30 Days: Yes Use of substances other than those prescribed or required for medical reasons: No Advance Directives: Yes Advance Directives on File: No Patient : No Current occupational status: employed Current occupation: rt handed/intermediate school teacher Physical Exam ED Vital Signs: Vital Signs - 24 hr 06/02/22 06:12 06/02/22 06:15 06/02/22 07:18 Temperature 97.9 F 97.9 F 97.9 F Pulse Rate 103 H 103 H 89 Respiratory Rate 22 H 22 H 14 Blood Pressure 133/85 133/85 143/66 H Pulse Oximetry 97 97 96 Oxygen Delivery Method Room Air Room Air Room Air 06/02/22 10:45 Temperature Pulse Rate 78 Respiratory Rate 16 Blood Pressure 129/57 L Pulse Oximetry 97 Oxygen Delivery Method Room Air BMI result Body Mass Index 36.1 GEN: Well developed, no acute distress, alert, oriented HEENT: Normocephalic, atraumatic, normal external ears, nose appears normal, no oropharyngeal edema or exudates Eyes: Normal to appearance Neck: Supple, no lymphadenopathy Respiratory: Talks in complete sentences, no respiratory distress, clear to auscultation bilaterally Cardiovascular: Regular rate and rhythm, no murmurs rubs or gallops Abdomen: Soft, nontender, nondistended, no guarding, no rebound Back: No CVA tenderness Extremities: No clubbing cyanosis or edema Neurologic: No focal neurologic deficits, cranial nerves 2-12 intact, strength is 5/5 bilaterally, gait normal Skin: No rash Course Course Course Narrative: 7-year-old female with history of hypertension presents with nausea vomiting, diarrhea and abdominal pain. My evaluation, she is nontoxic appearing. Her abdomen is tender minimally without rebound or guarding. She has moist mucous membranes. Patient had routine laboratory analysis, IV fluids, antiemetics, analgesics. Will re-evaluate patient. Patient denies having been on recent antibiotics doubt C diff colitis. This most likely a viral gastroenteritis. Reevaluation(s) Reevaluation #1: Some of the patient's laboratory results are returning. She has a leukocytosis likely due to either an acute leukemoid reaction secondary to illness, or viral illness related. She also has a marked lactic acidosis. I have ordered a 2 L of fluid. We will recheck the lactic acid following the 2 L of fluid. Patient is currently comfortable although slightly chilled. Awaiting the rest of her lab work imaging studies. Reevaluation #2: Patient is having slightly increased pain. I will discuss all results at this time with patient. Will provide 1/3 L fluid, recheck lactic acid, provide analgesics and H2 biju Time: 09:30 Reevaluation #3: Patient is currently feeling much better. She is ready for discharge. Discussed all results with the patient. She is aware that she has a right ovarian cyst that is not causing her symptoms but should be evaluated by Gynecology. Additionally, her white blood cell count is elevated likely due to either stress reaction or infection. Lactic acid has come down nicely again likely due to dehydration. I discussed all discharge instructions. All questions were addressed and answered. Time: 12:40 Medications Administered Discontinued Medications Generic Name Dose Route Start Last Admin Trade Name Sintia PRN Reason Stop Dose Admin Famotidine 20 mg 06/02/22 09:28 06/02/22 09:34 Famotidine/Pf 20 Mg/2 Ml Vial IVPUSH 06/02/22 09:29 20 mg ONCE ONE Administration Sodium Chloride 1,000 mls @ 999 mls/hr 06/02/22 06:20 06/02/22 08:14 Ns IV 06/02/22 07:20 Infused .Q1H1M ONE Infusion Sodium Chloride 1,000 mls @ 999 mls/hr 06/02/22 06:23 06/02/22 09:41 Ns IV 06/02/22 07:23 Infused .Q1H1M ONE Infusion Sodium Chloride 1,000 mls @ 999 mls/hr 06/02/22 07:00 06/02/22 09:42 Ns IV 06/02/22 08:00 Infused .Q1H1M KECIA Infusion Sodium Chloride 1,000 mls @ 999 mls/hr 06/02/22 09:30 06/02/22 10:46 Ns IV 06/02/22 10:30 Infused .Q1H1M KECIA Infusion Ketorolac Tromethamine 15 mg 06/02/22 09:28 06/02/22 09:34 Ketorolac Tromethamine 15 Mg/Ml Vial IVPUSH 06/02/22 09:29 15 mg ONCE ONE Administration Morphine Sulfate 4 mg 06/02/22 06:23 06/02/22 06:28 Morphine Sulfate 4 Mg/Ml Cartridge IVPUSH 06/02/22 06:24 4 mg ONCE ONE Administration Protocol Ondansetron HCl 4 mg 06/02/22 06:07 06/02/22 06:12 Ondansetron Odt 4 Mg Tab.Rapdis SUBLINGUAL 06/02/22 06:08 4 mg ONCE ONE Administration Ondansetron HCl 4 mg 06/02/22 06:24 06/02/22 06:28 Ondansetron Hcl 4 Mg/2 Ml Vial IVPUSH 06/02/22 06:25 4 mg ONCE ONE Administration Medical Decision Making Medical Decision Making [facility] Narrative: 7-year-old female with history of hypertension presents with nausea vomiting, diarrhea and abdominal pain. My evaluation, she is nontoxic appearing. Her abdomen is tender minimally without rebound or guarding. She has moist mucous membranes. Patient had routine laboratory analysis, IV fluids, antiemetics, analgesics. Will re-evaluate patient. Patient denies having been on recent antibiotics doubt C diff colitis. This most likely a viral gastroenteritis. Differential Diagnosis Differential Diagnoses: The differential diagnosis associated with the presentation includes (Gastroenteritis, colitis, diverticulitis, appendicitis, dehydration, electrolyte abnormality) Nausea, vomiting, diarrhea, lactic acidosis Admission/Observation Consideration of admission/observation: Escalation of care including admission/observation considered Lab Data [facility] Lab Attestation statement: I reviewed the patient's lab results. 06/02/22 06:23 06/02/22 06:23 Labs: Lab Results 06/02/22 06/02/22 06/02/22 Range/Units 06:23 06:23 06:23 WBC 19.6 H (4.8-10.8) X10*3/uL RBC 5.41 (4.20-5.50) X10*6/uL Hgb 16.0 (12.0-16.0) g/dl Hct 46.5 (37.0-47.0) % MCV 86.0 (80.0-98.0) fL MCH 29.6 (27.0-33.0) pg MCHC 34.4 (31.0-35.0) g/dl RDW 13.0 (11.0-16.0) % Plt Count 365 (160-400) X10*3/uL MPV 9.6 (9.4-12.3) fL Immature Gran % (Auto) 0.7 H (0.0-0.4) % Neut % (Auto) 90.9 H (45-73) % Lymph % (Auto) 4.0 L (20-40) % [place] % (Auto) 4.0 (2-11) % Eos % (Auto) 0.2 (0-4) % Baso % (Auto) 0.2 (0-2) % Lymph # (Auto) 0.8 L (1.2-4.9) X10*3/uL [place] # (Auto) 0.8 (0.1-1.2) X10*3/uL Eos # (Auto) 0.0 (0.0-0.4) X10*3/uL Baso # (Auto) 0.0 (0.0-0.2) X10*3/uL Abs Immat Gran (auto) 0.13 H (0.00-0.03) X10*3/uL Absolute Neuts (auto) 17.8 H (2.0-8.3) x10*3/uL Absolute Nucleated RBC 0.000 (0.0-0.012) X10*3/uL Nucleated RBC % (auto) 0.0 (0.0-0.2) /100WBC Smear Tech's Comments VERIFIED Sodium 143 (135-145) mmol/L Potassium 4.4 (3.3-5.1) mmol/L Chloride 105 (96-108) mmol/L Carbon Dioxide 18 L (22-29) mmol/L Anion Gap 24 H (12-20) BUN 18 H (9-16) mg/dL Creatinine 1.03 (0.5-1.4) mg/dL Estim Creat Clear Calc 72.3 Estimated GFR 55 Random Glucose 209 H (60-115) mg/dL Lactic Acid 4.2 H* (0.5-2.0) mmol/L Lactic Acid F/U @ 2Hr (0.5-2.0) mmol/L Calcium 10.1 (8.4-10.2) mg/dL Total Bilirubin 1.7 H (0.0-1.0) mg/dL AST 38 H (5-31) U/L ALT 36 H (0-31) U/L Alkaline Phosphatase 118 H (39-117) U/L Total Protein 7.5 (6.5-8.0) g/dL Albumin 4.7 (3.5-5.0) g/dL Lipase 67 (8-78) U/L Urine Color Urine Appearance Urine pH (5.0-9.0) Ur Specific [place] (1.005-1.025) Urine Protein (Neg-Trace) mg/dL Urine Glucose (UA) (Negative) mg/dL Urine Ketones (Negative) mg/dL Urine Blood (Negative) Urine Nitrite (Negative) Ur Leukocyte Esterase (Negative) Urine RBC (0-2) /HPF Urine WBC (0-5) /HPF Ur Squamous Epith Cells (0-2) /HPF Urine Bacteria (None Seen) Hyaline Casts (0-2) /LPF 06/02/22 06/02/22 06/02/22 Range/Units 08:11 09:14 10:32 WBC (4.8-10.8) X10*3/uL RBC (4.20-5.50) X10*6/uL Hgb (12.0-16.0) g/dl Hct (37.0-47.0) % MCV (80.0-98.0) fL MCH (27.0-33.0) pg MCHC (31.0-35.0) g/dl RDW (11.0-16.0) % Plt Count (160-400) X10*3/uL MPV (9.4-12.3) fL Immature Gran % (Auto) (0.0-0.4) % Neut % (Auto) (45-73) % Lymph % (Auto) (20-40) % [place] % (Auto) (2-11) % Eos % (Auto) (0-4) % Baso % (Auto) (0-2) % Lymph # (Auto) (1.2-4.9) X10*3/uL [place] # (Auto) (0.1-1.2) X10*3/uL Eos # (Auto) (0.0-0.4) X10*3/uL Baso # (Auto) (0.0-0.2) X10*3/uL Abs Immat Gran (auto) (0.00-0.03) X10*3/uL Absolute Neuts (auto) (2.0-8.3) x10*3/uL Absolute Nucleated RBC (0.0-0.012) X10*3/uL Nucleated RBC % (auto) (0.0-0.2) /100WBC Smear Tech's Comments Sodium (135-145) mmol/L Potassium (3.3-5.1) mmol/L Chloride (96-108) mmol/L Carbon Dioxide (22-29) mmol/L Anion Gap (12-20) BUN (9-16) mg/dL Creatinine (0.5-1.4) mg/dL Estim Creat Clear Calc Estimated GFR Random Glucose (60-115) mg/dL Lactic Acid 3.2 H* (0.5-2.0) mmol/L Lactic Acid F/U @ 2Hr 1.9 (0.5-2.0) mmol/L Calcium (8.4-10.2) mg/dL Total Bilirubin (0.0-1.0) mg/dL AST (5-31) U/L ALT (0-31) U/L Alkaline Phosphatase (39-117) U/L Total Protein (6.5-8.0) g/dL Albumin (3.5-5.0) g/dL Lipase (8-78) U/L Urine Color Dark Yellow Urine Appearance Cloudy Urine pH 5.0 (5.0-9.0) Ur Specific [place] 1.025 (1.005-1.025) Urine Protein Trace (Neg-Trace) mg/dL Urine Glucose (UA) Negative (Negative) mg/dL Urine Ketones Trace (Negative) mg/dL Urine Blood Negative (Negative) Urine Nitrite Negative (Negative) Ur Leukocyte Esterase Trace H (Negative) Urine RBC 0-2 (0-2) /HPF Urine WBC 0-5 (0-5) /HPF Ur Squamous Epith Cells 3-5 (0-2) /HPF Urine Bacteria None Seen (None Seen) Hyaline Casts 0-2 (0-2) /LPF Radiology Impression Discussion of test interpretation with radiology: I have reviewed the radiologist's reading. (IMPRESSION: Mild infiltration of the peripancreatic fat. Pancreatitis is considered. Clinical correlation recommended. Hepatosplen omegaly. Small right ovarian cyst. Ultrasound recommended in a patient of this age. Independently reviewed imaging study agree with Radiology interpretation) External Record Review External record reviewed: Outpatient record (Orthopedics evaluations in 2021) Prescription Management I considered prescription management with: Pain Medication Chronic Conditions Patient?s care impacted by: Hypertension Discharge Plan Discharge Clinical Impression: Nausea vomiting and diarrhea, Leukocytosis, Acidosis, lactic, Elevated LFTs, Hyperglycemia, Cyst of right ovary Patient Disposition: Home, Self-Care Instructions: Acute Diarrhea (ED), Leukocytosis (ED), Diabetic Hyperglycemia (ED) Additional Instructions: Your evaluated today for nausea vomiting diarrhea. He had a CT scan which did demonstrate a right ovarian cyst that was small. This can be followed up with her primary care doctor or her still tender. You are also noted to have an elevated white blood cell count which is likely due to a viral gastroenteritis or stress reaction. Her lactic acid level was elevated. This can occur when are in any acute stress state. Please make sure to drink appropriate levels of fluids to keep yourself hydrated. Should her symptoms worsen, intractable nausea or vomiting or increasing diarrhea or blood in her stool or vomitus, please seek emergent evaluation in the emergency room. Prescriptions: No Action oxycodone-acetaminophen [Percocet] 5-325 mg tablet 1 tab PO Q4-6H PRN (Reason: pain) 7 Days Qty: 42 0RF lisinopril 20 mg PO DAILY Wellbutrin XL 150 mg PO DAILY Lexapro omeprazole 20 mg PO DAILY hydrocodone-acetaminophen 5-325 mg tablet 1 tab PO BEDTIME PRN (Reason: pain) 14 Days Qty: 14 0RF Referrals: Jo Jenkins NP [Primary Care Provider] - 5 days
[2022-06-02 07:14] LABS: Alanine Aminotransferase 36 U/L (0-31); Albumin Level 4.7 g/dL (3.5-5.0); Alkaline Phosphatase 118 U/L (39-117); Anion Gap 24 (12-20); Aspartate Amino Transferase 38 U/L (5-31); Bilirubin Total 1.7 mg/dL (0.0-1.0); Blood Urea Nitrogen 18 mg/dL (9-16); Calcium 10.1 mg/dL (8.4-10.2); Carbon Dioxide 18 mmol/L (22-29); Chloride 105 mmol/L (96-108); Creatinine Clr Calc Pharmacy 72.3; Estimated Glomerular Filt Rate 55; Glucose Random 209 mg/dL (60-115); Lipase 67 U/L (8-78); Potassium 4.4 mmol/L (3.3-5.1); Sodium 143 mmol/L (135-145); Total Protein 7.5 g/dL (6.5-8.0)
[2022-06-02 07:18] VITALS: BP 143/66; PULSE 89; RESP 14; TEMP 36.6; O2SAT 96
[2022-06-02 08:28] LABS: Reflex Lactate? Lactic Acid Added
[2022-06-02 08:42] LABS: Lactic Acid 3.2 mmol/L (0.5-2.0)
[2022-06-02 09:24] LABS: Appearance Urine Cloudy; Color Urine Dark Yellow; Glucose Urine UA Negative (Negative); Leukocyte Esterase Urine Trace (Negative); Nitrite Urine Negative (Negative); Specific Gravity - Urine 1.025 (1.005-1.025); UMIC TRIGGER UACC YES; Urine Blood Negative (Negative); Urine Ketones Trace mg/dL (Negative); Urine Protein Trace mg/dL (Neg-Trace)
[2022-06-02 09:28] LABS: Bacteria Urine None Seen (None Seen); Hyaline Casts Urine 0-2 /LPF (0-2); RBC Urine 0-2 /HPF (0-2); WBC Urine 0-5 /HPF (0-5)
[2022-06-02] MEDS: Ketorolac Tromethamine 15 MG/ML VIAL IVPUSH (09:34)
[2022-06-02] MEDS: Famotidine/PF 20 MG/2 ML VIAL IVPUSH (09:34)
[2022-06-02 10:14] LABS: Reflex Lactate? Lactic Acid Added
[2022-06-02 10:45] VITALS: BP 129/57; PULSE 78; RESP 16; O2SAT 97
[2022-06-02 11:00] LABS: ~Lactic Acid-LAB USE ONLY 1.9 mmol/L (0.5-2.0)
== END 2022-06-02 12:50 | disposition home or self-care (01) ==
PROVIDERS: Internal Medicine; Emergency Provider Emergency Medicine; PCP Nurse Practitioner Family
DX: R11.2 Nausea with vomiting, unspecified (principal); R19.7 Diarrhea, unspecified; R73.9 Hyperglycemia, unspecified; E87.20 Acidosis, unspecified; D72.829 Elevated white blood cell count, unspecified; R79.89 Other specified abnormal findings of blood chemistry; N83.201 Unspecified ovarian cyst, right side; F17.210 Nicotine dependence, cigarettes, uncomplicated; Z86.718 Personal history of other venous thrombosis and embolism; Z86.711 Personal history of pulmonary embolism; Z98.84 Bariatric surgery status; Z79.899 Other long term (current) drug therapy
CPT/HCPCS: 36415; 74176; 80053; 81001; 83605; 83690; 85025; 96361; 96374; 96375; 99285; J1885; J2270; J2405